=== PATIENT | female | born 1940 | race Caucasian/White ===

== ENCOUNTER 2020-07-15 13:50 | Emergency (ER) | payer OTHER ==
--- NOTE | 2020-07-15 15:36 | RAD REPORT ---
EXAM DESCRIPTION: CT - Head Brain Wo Cont - 07/15/2020 3:17 pm CLINICAL HISTORY: fall COMPARISON: <Comparisons> TECHNIQUE: Axial 5 mm thick images of the head were obtained without IV contrast. All CT scans are performed using dose optimization technique as appropriate and may include automated exposure control or mA/KV adjustment according to patient size. FINDINGS: No intracranial hemorrhage, mass, edema or shift of mid-line structures. No acute infarcti on changes seen. Mild atrophy and chronic ischemic changes are present. Ventricles are in proportion to volume loss. Mastoid air cells and visualized portions of the paranasal sinuses are clear. No acute bony findings. IMPRESSION: No hemorrhage or acute intracranial finding. Mild atrophy and chronic ischemic change. Chronic ischemic changes can mask nonhemorrhagic acute infarction. MR brain followup can be obtained if there is ongoing concern for acute ischemia.
[2020-07-15 17:11] LABS: Absolute Lymphocytes (CBC) 1.8 K/uL (0.7-4.9); Basophils % 0.7 % (0-1.3); Hematocrit 38.2 % (36.0-45.0); Lymphocytes % 13.9 % (15.3-44.8); MPV 8.8 fL (7.6-11.3); RBC Red Blood Cell Count 4.18 M/uL (3.86-4.86)
[2020-07-15] MEDS ORDERED: NA CHLORIDE 0.9% 500 ML ONE ×2 (17:13→18:21)
[2020-07-15 17:26] LABS: Potassium 4.1 mmol/L (3.5-5.1)
--- NOTE | 2020-07-15 18:23 | EDPHYS ---
Physician Documentation [facility] Name: July Godinez Age: 79 yrs Sex: Female : 1940 Arrival Date: 07/15/2020 Time: 13:52 Bed 2 Private MD: ED Physician Edgar Aguilar HPI: 07/15 16:52 This 79 yrs old Female presents to ER via Wheelchair with complaints of Fall rn Injury - repeated. 16:52 Details of fall: The patient fell from an upright position, from seated position. rn Onset: The symptoms/episode began/occurred today, yesterday. Associated injuries: The patient sustained injury to the head, right leg. Severity of symptoms: At their worst the symptoms were mild, in the emergency department the symptoms are unchanged. The patient has experienced similar episodes in the past. Family and patient report multiple falls for months, but 3 falls in last 24 hours, scraped leg yesterday. Reports takes xanax frequently, and recently started taking unknown prescription pain medication for TMJ pain. Reports hit head yesterday but no LOC. Denies pain currently, no vomiting/diarrhea/chest pain/sob/fever. Reports generalized weakness and uses stool/rolling chair to clean the house. Doesn't drink water, only drinks iced tea. . Historical: - Allergies: 14:44 Demerol; ca1 - PMHx: 14:44 Thyroid problem; Hypertension; DVT; ca1 - PSHx: 14:44 shoulder surgery; Hysterectomy; ca1 - Immunization history:: Adult Immunizations up to date, Flu vaccine is up to date. - Social history:: Smoking status: Patient denies any tobacco usage or history of. - Family history:: not pertinent. - Hospitalizations: : No recent hospitalization is reported. ROS: 16:52 Constitutional: Negative for fever, chills, and weight loss, Eyes: Negative for injury, rn pain, redness, and discharge, Neck: Negative for injury, pain, and swelling, Cardiovascular: Negative for chest pain, palpitations, and edema, Respiratory: Negative for shortness of breath, cough, wheezing, and pleuritic chest pain, Abdomen/GI: Negative for abdominal pain, nausea, vomiting, diarrhea, and constipation, Back: Negative for injury and pain, MS/Extremity: Negative for injury and deformity, Skin: + abrasion/skin tear RLE Neuro: Negative for headache, numbness, tingling, and seizure. Exam: 16:52 Constitutional: This is a well developed, well nourished patient who is awake, alert, rn and in no acute distress. Head/Face: Normocephalic, atraumatic. Eyes: Pupils equal round and reactive to light, extra-ocular motions intact. Periorbital areas with no swelling, redness, or edema. ENT: dry MM Neck: Trachea midline, no masses palpated, and no cervical lymphadenopathy. Supple, full range of motion without nuchal rigidity, or vertebral point tenderness. No Meningismus. Chest/axilla: Normal chest wall appearance and motion. Non-tender Cardiovascular: Regular rate and rhythm. No pulse deficits. Respiratory: No increased work of breathing, no retractions or nasal flaring. Abdomen/GI: Soft, non-tender Back: No spinal tenderness. No costovertebral tenderness. Full range of motion. MS/ Extremity: Pulses equal, no cyanosis. Neurovascular intact. Full, normal range of motion. Equal circumference. + long linear abrasion/skin tear RLE, no laceration Neuro: Awake and alert, GCS 15, oriented to person, place, time, and situation. Cranial nerves II-XII grossly intact. Motor strength 5/5 in all extremities. Sensory grossly intact. Cerebellar exam normal. Vital Signs: 14:35 BP 120 / 61; Pulse 57; Resp 18 S; Temp 98.3(TE); Pulse Ox 93% on R/A; Weight 86.18 kg ca1 (R); Height 5 ft. 4 in. (162.56 cm) (R); Pain 0/10; 16:56 Temp 97.9(O); ae4 17:20 BP 136 / 56; Pulse 60; Resp 21; Pulse Ox 95% on R/A; ae4 17:51 BP 112 / 56; Pulse 60; Resp 16; Pulse Ox 96% on R/A; ae4 18:49 BP 125 / 61; Pulse 60; Resp 24; Pulse Ox 93% on R/A; ae4 14:35 Body Mass Index 32.61 (86.18 kg, 162.56 cm) ca1 MDM: 16:38 Patient medically screened. rn 18:07 ED course: Family showed me picture of medication, includes hydrocodone, tylenol #3, rn quetiapine, xanax. Most likely etiology of multiple falls is over medication with sedative/pain meds, and dehydration contributing as superimposed problem. Cath did not have any urine in bladder, will give more fluids. . 18:20 Differential diagnosis: closed head injury, dehydration, over medication. Data rn reviewed: vital signs, nurses notes, lab test result(s), EKG, radiologic studies, and as a result, I will discharge patient. Counseling: I had a detailed discussion with the patient and/or guardian regarding: the historical points, exam findings, and any diagnostic results supporting the discharge/admit diagnosis, lab results, radiology results, the need for outpatient follow up, to return to the emergency department if symptoms worsen or persist or if there are any questions or concerns that arise at home. Response to treatment: the patient's symptoms have markedly improved after treatment, and as a result, I will discharge patient. Special discussion: I discussed with the patient/guardian in detail that at this point there is no indication for admission to the hospital. It is understood, however, that if the symptoms persist or worsen the patient needs to return immediately for re-evaluation. 07/15 16:52 Order name: CBC with Diff; Complete Time: 17:23 rn 07/15 16:52 Order name: Basic Metabolic Panel; Complete Time: 17:36 rn 07/15 14:45 Order name: CT Head Brain wo Cont; Complete Time: 16:38 ca1 07/15 16:52 Order name: Urine Microscopic Only 07/15 18:23 Order name: Urine Dipstick--Ancillary (enter results) em1 07/15 18:49 Order name: Urine Culture EDDE 07/15 14:45 Order name: EKG; Complete Time: 14:46 ca1 07/15 14:45 Order name: EKG - Nurse/Tech; Complete Time: 14:45 ca1 07/15 16:52 Order name: IV Start; Complete Time: 16:55 rn 07/15 16:52 Order name: Urine Dipstick-Ancillary (obtain specimen); Complete Time: 18:21 rn 07/15 17:24 Order name: XRAY Chest (1 view) rn Administered Medications: 17:01 Drug: NS 0.9% 500 ml Route: IV; Rate: bolus; Site: right antecubital; ae4 17:30 Follow up: IV Status: Completed infusion; IV Intake: 500ml ae4 18:15 Drug: NS 0.9% 500 ml Route: IV; Rate: bolus; Site: right antecubital; ae4 19:11 Follow up: IV Status: Completed infusion; IV Intake: 500ml ae4 Disposition: 07/15/20 18:23 Discharged to Home. Impression: Weakness, Dehydration. - Condition is Stable. - Discharge Instructions: Dehydration, Adult, Weakness. - Medication Reconciliation Form, Thank You Letter, Antibiotic Education, Prescription Opioid Use form. - Follow up: Private Physician; When: As needed; Reason: Recheck today's complaints, Re-evaluation by your physician. - Problem is an ongoing problem. - Symptoms have improved. Signatures: Dispatcher [employer] EDMS Edgar Aguilar MD MD rn Acob, BELEN Medina RN Ranulfo Rose RN RN ae4 Corrections: (The following items were deleted from the chart) 19:12 18:23 07/15/2020 18:23 Discharged to Home. Impression: Weakness; Dehydration. Condition ae4 is Stable. Discharge Instructions: Dehydration, Adult, Weakness. Forms are Medication Reconciliation Form, Thank You Letter, Antibiotic Education, Prescription Opioid Use. Follow up: Private Physician; When: As needed; Reason: Recheck today's complaints, Re-evaluation by your physician. Problem is an ongoing problem. Symptoms have improved. rn
--- NOTE | 2020-07-15 18:23 | ER ---
Nurse's Notes [facility] Name: July Godienz Age: 79 yrs Sex: Female : 1940 Arrival Date: 07/15/2020 Time: 13:52 Bed 2 Private MD: Diagnosis: Weakness;Dehydration Presentation: 07/15 14:35 Chief complaint: Patient's son or daughter states: daughter: yesterday she had fallen ca1 from loss of balance, she hit her head on the dresser and tore her leg on the R. Unknown if there was LOC, Not on blood thinners for 6-7 years. This morning, we showed up at noon and she said she fell again, twice today, and said she spent couple hours on the floor. 1st fall today, she off the toilet, then 2nd floor, slid off the bed. Pt A\T\Ox4. VAN negative. Slurring negative. Coronavirus screen: Client denies travel out of the [place] in the last 14 days. At this time, the client does not indicate any symptoms associated with coronavirus-19. Ebola Screen: Patient negative for fever greater than or equal to 101.5 degrees Fahrenheit, and additional compatible Ebola Virus Disease symptoms Patient denies exposure to infectious person. Patient denies travel to an Ebola-affected area in the 21 days before illness onset. No symptoms or risks identified at this time. Initial Sepsis Screen: Does the patient meet any 2 criteria? No. Patient's initial sepsis screen is negative. Does the patient have a suspected source of infection? No. Patient's initial sepsis screen is negative. Risk Assessment: Do you want to hurt yourself or someone else? Patient reports no desire to harm self or others. Onset of symptoms was July 15, 2020. 14:35 Method Of Arrival: Wheelchair ca1 14:35 Acuity: ALDO 2 ca1 Historical: - Allergies: 14:44 Demerol; ca1 - PMHx: 14:44 Thyroid problem; Hypertension; DVT; ca1 - PSHx: 14:44 shoulder surgery; Hysterectomy; ca1 - Immunization history:: Adult Immunizations up to date, Flu vaccine is up to date. - Social history:: Smoking status: Patient denies any tobacco usage or history of. - Family history:: not pertinent. - Hospitalizations: : No recent hospitalization is reported. Screenin:21 Abuse screen: Denies threats or abuse. Nutritional screening: No deficits noted. ae4 Tuberculosis screening: No symptoms or risk factors identified. Fall Risk Fall in past 12 months (25 points). Secondary diagnosis (15 points) impaired mobility, IV access (20 points). Ambulatory Aid- None/Bed Rest/Nurse Assist (0 pts). Gait- Normal/Bed Rest/Wheelchair (0 pts) Mental Status- Overestimates/Forgets Limitations (15 pts.). Primary Survey: 17:20 NO uncontrolled hemorrhage observed. Breathing/Chest: Respiratory pattern: regular. ae4 Assessment: 17:16 General: Appears in no apparent distress. comfortable, obese, unkempt, Behavior is ae4 calm, cooperative. Pain: Denies pain. Neuro: Level of Consciousness is awake, alert, obeys commands, Oriented to person, place, time, situation. Cardiovascular: Patient's skin is warm and dry. Rhythm is regular. Respiratory: Airway is patent Respiratory effort is even, unlabored, Respiratory pattern is regular, symmetrical. GI: No signs and/or symptoms were reported involving the gastrointestinal system. Abdomen is round obese, Bowel sounds present X 4 quads. GI:. : Reports Not able to urinate, as she does not typically drink water . EENT: Oral mucosa is dry. Poor dentition noted. Derm: Wound noted right arauoj Other: Skin tear, dried blood noted. Similar healed skin tear to left anterior lower extremity. Derm: Skin is dry, Skin temperature is warm. Musculoskeletal: No signs and/or symptoms reported regarding the musculoskeletal system. Swelling present in right araujo. Injury Description: Fall. 17:22 Reassessment: Patient appears in no apparent distress at this time. Patient and/or ae4 family updated on plan of care and expected duration. Pain level reassessed. 18:09 Reassessment: Patient appears in no apparent distress at this time. Patient and/or ae4 family updated on plan of care and expected duration. Pain level reassessed. Patient denies pain at this time. Attempted to straight-cath to obtain a urine sample, to no avail. notified provider.. 18:50 Reassessment: Patient appears in no apparent distress at this time. Patient and/or ae4 family updated on plan of care and expected duration. Pain level reassessed. Patient is alert, oriented x 3, equal unlabored respirations, skin warm/dry/pink. Patient denies pain at this time. Patient states feeling better. Vital Signs: 14:35 BP 120 / 61; Pulse 57; Resp 18 S; Temp 98.3(TE); Pulse Ox 93% on R/A; Weight 86.18 kg ca1 (R); Height 5 ft. 4 in. (162.56 cm) (R); Pain 0/10; 16:56 Temp 97.9(O); ae4 17:20 BP 136 / 56; Pulse 60; Resp 21; Pulse Ox 95% on R/A; ae4 17:51 BP 112 / 56; Pulse 60; Resp 16; Pulse Ox 96% on R/A; ae4 18:49 BP 125 / 61; Pulse 60; Resp 24; Pulse Ox 93% on R/A; ae4 14:35 Body Mass Index 32.61 (86.18 kg, 162.56 cm) ca1 ED Course: 13:52 Patient arrived in ED. as 14:43 Triage completed. ca1 14:44 Arm band placed on right wrist. ca1 14:45 Bed in low position. Call light in reach. Side rails up X2. Adult w/ patient. Cardiac ae4 monitor on. Pulse ox on. NIBP on. Warm blanket given. 15:17 CT Head Brain wo Cont In Process Unspecified. EDMS 16:38 Edgar Aguilar MD is Attending Physician. rn 16:55 Ranulfo Ramirez, BELEN is Primary Nurse. ae4 16:56 Inserted saline lock: 22 gauge in right antecubital area, using aseptic technique. ae4 Blood collected. 17:43 XRAY Chest (1 view) In Process Unspecified. EDMS 18:09 Straight cath inserted, using sterile technique, 15 FR, no urine return. ae4 19:10 No provider procedures requiring assistance completed. IV discontinued, intact, ae4 bleeding controlled, No redness/swelling at site. Pressure dressing applied. Administered Medications: 17:01 Drug: NS 0.9% 500 ml Route: IV; Rate: bolus; Site: right antecubital; ae4 17:30 Follow up: IV Status: Completed infusion; IV Intake: 500ml ae4 18:15 Drug: NS 0.9% 500 ml Route: IV; Rate: bolus; Site: right antecubital; ae4 19:11 Follow up: IV Status: Completed infusion; IV Intake: 500ml ae4 Intake: 17:30 IV: 500ml; Total: 500ml. ae4 19:11 IV: 500ml; Total: 1000ml. ae4 Outcome: 18:23 Discharge ordered by . rn 19:10 Discharged to home via wheelchair, with family. ae4 19:10 Condition: stable 19:10 Discharge instructions given to patient, Instructed on discharge instructions, follow up and referral plans. Demonstrated understanding of instructions, Patient teaching on adequate water intake. 19:12 Patient left the ED. ae4 Signatures: Dispatcher [employer] Leola Oneal Roman, MD MD rn Aceden, Carol, RN RN ca1 Ranulfo Ramirez RN RN ae4 Corrections: (The following items were deleted from the chart) 14:46 14:35 Chief complaint: Patient's son or daughter states: daughter: yesterday she had ca1 fallen from loss of balance, she hit her head on the dresser and tore her leg on the R. Unknown if there was LOC. This morning, we showed up at noon and she said she fell again, twice today, and said she spent couple hours on the floor. 1st fall today, she off the toilet, then 2nd floor, slid off the bed. Pt A\T\Ox4. VAN negative. Slurring negative. ca1
[2020-07-15 18:31] LABS: Urine Glucose NEGATIVE (NEG); Urine Specific Gravity >1.030 (1.005-1.030)
[2020-07-15 18:32] LABS: Urine Blood NEGATIVE (NEG); Urine Protein NEGATIVE (NEG)
[2020-07-15 18:47] LABS: Urine Bacteria <20 /HPF (<20); Urine RBC NONE SEEN /HPF (NONE SEEN)
[2020-07-15 19:17] VITALS: TEMP 97.9
[2020-07-15 19:20] VITALS: BP 125/61; O2SAT 93
--- NOTE | 2020-07-15 19:48 | RAD REPORT ---
EXAM DESCRIPTION: RAD - Chest Single View - 07/15/2020 5:42 pm CLINICAL HISTORY: weakness, elevated WBC COMPARISON: Two view chest December 2014 TECHNIQUE: AP portable chest image was obtained 07/15/2020 5:42 pm . FINDINGS: Lung volumes are low compared to prior study. Patient is rotated slightly. No peripheral m ass or consolidation. Heart size and vasculature are fractionally increased from comparison. No measu rable pleural effusion and no pneumothorax. No acute bony abnormality seen. No acute aortic findings suspected. IMPRESSION: No focal mass or consolidation. Heart, vasculature and lung markings are mildly prominent. This is mostly the affects of portable martinez hnique and shallow inspiration. A minimal failure or volume overload are not excluded.
== END 2020-07-15 19:12 | disposition home or self-care (01) ==
LOC: ER 13:50
DX: E86.0 Dehydration (principal); R29.6 Repeated falls; I10 Essential (primary) hypertension; Z86.718 Personal history of other venous thrombosis and embolism; Z88.5 Allergy status to narcotic agent
CPT/HCPCS: 93005; 87088; 85025; 87086; 80048; 36415; 70450; 71045; 51702; 96360; 99284; J7040 ×2; 81003; 81015

== ENCOUNTER 2020-07-16 16:44 | Observation (INO) | payer OTHER ==
--- OUTSIDE RECORDS SUMMARY | 2020-07-16 16:46 | XMS REPORT | Continuity of Care Document ---
:[address] [facility] t Address [address] [place] [address] Care Team Providers Name Role Phone Georges MACEDO Attending Clinician Problems This patient has no known problems. Allergies, Adverse Reactions, Alerts This patient has no known allergies or adverse reactions. Medications This patient has no known medications. Procedures This patient has no known procedures. Encounters Start End Encounter Admission Attending Care Care Encounter Source Date/Time Date/Time Type Type Clinicians Facility Department ID 2019-11-15 2019-11-15 Natalee Su MOELZA [id number] 00:00:00 00:00:00 [facility] [id number] [place] [id number] Erik [id number] [address] [address] Results This patient has no known results.
--- NOTE | 2020-07-16 20:26 | EDPHYS ---
Physician Documentation [facility] Name: July Godinez Age: 79 yrs Sex: Female : 1940 Arrival Date: 07/16/2020 Time: 16:46 Bed 3 Private MD: ED Physician Guido Linn HPI: 07/16 20:21 This 79 yrs old Female presents to ER via Wheelchair with complaints of Fall karen Injury. 20:21 Details of fall: The patient fell from an upright position, while standing, while karen walking. Onset: The symptoms/episode began/occurred just prior to arrival. Associated injuries: The patient sustained injury to the head. Severity of symptoms: At their worst the symptoms were mild, in the emergency department the symptoms are unchanged. The patient has not experienced similar symptoms in the past. Historical: - Allergies: 17:10 Demerol; ll1 - PMHx: 17:10 Hypertension; DVT; Thyroid problem; ll1 - PSHx: 17:10 shoulder surgery; Hysterectomy; ll1 - Immunization history:: Flu vaccine is up to date. - Social history:: Smoking status: Patient denies any tobacco usage or history of. - Immunization history: Last tetanus immunization: - up to date. - Family history:: not pertinent. ROS: 20:21 Constitutional: Negative for fever, chills, and weight loss, Eyes: Negative for injury, karen pain, redness, and discharge, ENT: Negative for injury, pain, and discharge, Neck: Negative for injury, pain, and swelling, Cardiovascular: Negative for chest pain, palpitations, and edema, Respiratory: Negative for shortness of breath, cough, wheezing, and pleuritic chest pain, Abdomen/GI: Negative for abdominal pain, nausea, vomiting, diarrhea, and constipation, Back: Negative for injury and pain, : Negative for injury, bleeding, discharge, and swelling, MS/Extremity: Negative for injury and deformity, Skin: Negative for injury, rash, and discoloration, Neuro: Negative for headache, weakness, numbness, tingling, and seizure, Psych: Negative for depression, anxiety, suicide ideation, homicidal ideation, and hallucinations, Allergy/Immunology: Negative for hives, rash, and allergies, Endocrine: Negative for neck swelling, polydipsia, polyuria, polyphagia, and marked weight changes, Hematologic/Lymphatic: Negative for swollen nodes, abnormal bleeding, and unusual bruising. Exam: 20:21 Constitutional: This is a well developed, well nourished patient who is awake, alert, karen and in no acute distress. Eyes: Pupils equal round and reactive to light, extra-ocular motions intact. Lids and lashes normal. Conjunctiva and sclera are non-icteric and not injected. Cornea within normal limits. Periorbital areas with no swelling, redness, or edema. ENT: Nares patent. No nasal discharge, no septal abnormalities noted. Tympanic membranes are normal and external auditory canals are clear. Oropharynx with no redness, swelling, or masses, exudates, or evidence of obstruction, uvula midline. Mucous membranes moist. Neck: Trachea midline, no thyromegaly or masses palpated, and no cervical lymphadenopathy. Supple, full range of motion without nuchal rigidity, or vertebral point tenderness. No Meningismus. Chest/axilla: Normal chest wall appearance and motion. Nontender with no deformity. No lesions are appreciated. Cardiovascular: Regular rate and rhythm with a normal S1 and S2. No gallops, murmurs, or rubs. Normal PMI, no JVD. No pulse deficits. Respiratory: Lungs have equal breath sounds bilaterally, clear to auscultation and percussion. No rales, rhonchi or wheezes noted. No increased work of breathing, no retractions or nasal flaring. Abdomen/GI: Soft, non-tender, with normal bowel sounds. No distension or tympany. No guarding or rebound. No evidence of tenderness throughout. Back: No spinal tenderness. No costovertebral tenderness. Full range of motion. Female : Normal external genitalia. Skin: Warm, dry with normal turgor. Normal color with no rashes, no lesions, and no evidence of cellulitis. MS/ Extremity: Pulses equal, no cyanosis. Neurovascular intact. Full, normal range of motion. Neuro: Awake and alert, GCS 15, oriented to person, place, time, and situation. Cranial nerves II-XII grossly intact. Motor strength 5/5 in all extremities. Sensory grossly intact. Cerebellar exam normal. Normal gait. Psych: Awake, alert, with orientation to person, place and time. Behavior, mood, and affect are within normal limits. 21:01 ECG was reviewed by the Attending Physician. [facility] Vital Signs: 17:06 BP 129 / 52; Pulse 62; Resp 18; Temp 98.2; Pulse Ox 95% ; Weight 86.18 kg; Height 5 ft. ll1 4 in. (162.56 cm); Pain 0/10; 22:45 BP 137 / 64 Supine; Pulse 64; Resp 16; Pulse Ox 91% ; rr5 22:47 BP 131 / 64 Sitting; Pulse 61; Resp 17; Pulse Ox 92% ; rr5 22:49 BP 134 / 56 Standing; Pulse 69; Resp 20; Pulse Ox 90% ; rr5 23:13 BP 151 / 62; Pulse 61; Resp 20; Temp 98; Pulse Ox 96% on R/A; rv 17:06 Body Mass Index 32.61 (86.18 kg, 162.56 cm) ll1 [place] Coma Score: 19:43 Eye Response: spontaneous(4). Verbal Response: oriented(5). Motor Response: obeys rv commands(6). Total: 15. Trauma Score (Adult): 19:43 Eye Response: spontaneous(1); Verbal Response: oriented(1); Motor Response: obeys rv commands(2); Systolic BP: > 89 mm Hg(4); Respiratory Rate: 10 to 29 per min(4); [place] Score: 15; Trauma Score: 12 MDM: 19:24 Patient medically screened. [facility] 20:23 Differential diagnosis: closed head injury. Data reviewed: vital signs, nurses notes, [facility] lab test result(s), EKG, radiologic studies, CT scan, plain films. Data interpreted: school bus monitor: rate is 62 beats/min, Pulse oximetry: on room air is 95 %. Test interpretation: by ED physician or midlevel provider: ECG, plain radiologic studies. Counseling: I had a detailed discussion with the patient and/or guardian regarding: the historical points, exam findings, and any diagnostic results supporting the discharge/admit diagnosis, lab results, radiology results, the need for further work-up and treatment in the hospital. 07/16 20:20 Order name: Basic Metabolic Panel; Complete Time: 21:16 [facility] 07/16 20:20 Order name: CBC with Diff; Complete Time: 21:02 [facility] 07/16 20:20 Order name: LFT's; Complete Time: 21:16 [facility] 07/16 20:20 Order name: Magnesium; Complete Time: 21:16 [facility] 07/16 20:20 Order name: NT PRO-BNP; Complete Time: 21:16 [facility] 07/16 20:20 Order name: PT-INR; Complete Time: 21:16 [facility] 07/16 20:20 Order name: Troponin (emerg Dept Use Only); Complete Time: 21:16 [facility] 07/16 23:03 Order name: Urine Microscopic Only 5 07/16 23:18 Order name: Urine Dipstick--Ancillary (enter results) 07/16 23:38 Order name: Urine Dipstick-Ancillary; Complete Time: 07:19 [facility] 07/17 04:27 Order name: COVID-19 [facility] 07/17 04:40 Order name: CORONAVIRUS [facility] 07/17 05:26 Order name: SARS-COV-2 RT PCR; Complete Time: 07:19 [facility] 07/17 05:31 Order name: CBC with Automated Diff; Complete Time: 07:19 [facility] 07/16 18:58 Order name: CT Head Brain wo Cont; Complete Time: 20:57 07/16 20:20 Order name: XRAY Chest (1 view) [facility] 07/16 20:20 Order name: EKG; Complete Time: 20:22 [facility] 07/16 20:20 Order name: Cardiac monitoring; Complete Time: 20:34 [facility] 07/16 20:20 Order name: EKG - Nurse/Tech; Complete Time: 21:50 [facility] 07/16 20:20 Order name: IV Saline Lock; Complete Time: 20:34 [facility] 07/16 20:20 Order name: Labs collected and sent; Complete Time: 20:34 [facility] 07/16 20:20 Order name: CT C Spine; Complete Time: 22:37 [facility] 07/17 05:46 Order name: Basic Metabolic Panel; Complete Time: 07:19 [facility] 07/17 05:47 Order name: T4 Free; Complete Time: 07:19 [facility] 07/17 05:47 Order name: Magnesium; Complete Time: 07:19 [facility] 07/17 05:47 Order name: Thyroid Stimulating Hormone; Complete Time: 07:19 [facility] 07/16 20:20 Order name: O2 Per Protocol; Complete Time: 20:34 [facility] 07/16 20:20 Order name: O2 Sat Monitoring; Complete Time: 20:34 [facility] 07/16 20:20 Order name: Urine Dipstick-Ancillary (obtain specimen); Complete Time: 20:34 karen 07/16 20:20 Order name: Wound Care; Complete Time: 21:29 karen 07/16 20:35 Order name: Urine Dipstick-Ancillary (obtain specimen); Complete Time: 23:02 rv 07/16 21:45 Order name: Orthostatic Blood Pressure; Complete Time: 23:02 la1 EC:01 Rate is 60 beats/min. Rhythm is regular. QRS [place] is Normal. [place] interval is normal. QRS karen interval is normal. QT interval is normal. No Q waves. T waves are Normal. No ST changes noted. Clinical impression: NSR w/ Non-specific ST/T Changes, 1st degree heart block, and No evidence of ischemia. Interpreted by me. Reviewed by me. Administered Medications: 20:45 Drug: NS 0.9% 500 ml Route: IV; Rate: bolus; Site: left antecubital; rv 21:50 Follow up: IV Status: Completed infusion; IV Intake: 500ml rv 21:50 Drug: NS 0.9% 1000 ml Route: IV; Rate: 125 ml/hr; Site: left antecubital; rv 23:15 Follow up: IV Status: Completed infusion rv 07/17 00:30 Drug: SEROquel 200 mg Route: PO; rv 00:30 Drug: Benadryl 50 mg Route: PO; rv Disposition: 07/16/20 20:26 Hospitalization ordered by Sim Pritchard for Observation. Preliminary diagnosis are Syncope and collapse - near, Weakness, Superficial injury of head, Repeated falls. - Bed requested for Telemetry/MedSurg (observation). - Status is Observation. sv - Condition is Fair. - Problem is new. - Symptoms have improved. Signatures: Dispatcher [employer] EDMN Amanda Lacey RN RN sv Gay, Steven RN Guido Mena MD MD cha Nieto, Roman, MD MD rn Attema, Lee, SALT LIFTER-C SALT LIFTER-Cla1 Samantha Silva RN RN cg Vicente, Ronaldo, RN RN rv Lewis, Lynsay, RN RN ll1 Corrections: (The following items were deleted from the chart) 07/16 21:47 20:26 Hospitalization Ordered by Hemant Mullins MD for Observation. Preliminary la1 diagnosis is Syncope and collapse - near; Weakness; Superficial injury of head; Repeated falls. Bed requested for Telemetry/MedSurg (observation). Status is Observation. Condition is Fair. Problem is new. Symptoms have improved. karen 22:56 21:47 07/16/2020 20:26 Hospitalization Ordered by Sim Pritchard for Observation. cg Preliminary diagnosis is Syncope and collapse - near; Weakness; Superficial injury of head; Repeated falls. Bed requested for Telemetry/MedSurg (observation). Status is Observation. Condition is Fair. Problem is new. Symptoms have improved. la1 07/17 06:29 07/16 22:56 07/16/2020 20:26 Hospitalization Ordered by Sim Pritchard for Observation. cg Preliminary diagnosis is Syncope and collapse - near; Weakness; Superficial injury of head; Repeated falls. Bed requested for [facility] ER HOLD. Status is Observation. Condition is Fair. Problem is new. Symptoms have improved. cg 07/17 07:58 06:29 07/16/2020 20:26 Hospitalization Ordered by Sim Pritchard for Observation. sv Preliminary diagnosis is Syncope and collapse - near; Weakness; Superficial injury of head; Repeated falls. Bed requested for Telemetry/MedSurg (observation). Status is Observation. Condition is Fair. Problem is new. Symptoms have improved.
--- NOTE | 2020-07-16 20:26 | ER ---
Nurse's Notes [facility] Name: July Godinez Age: 79 yrs Sex: Female : 1940 Arrival Date: 07/16/2020 Time: 16:46 Bed 3 Private MD: Diagnosis: Syncope and collapse-near;Weakness;Superficial injury of head;Repeated falls Presentation: 07/16 17:06 Chief complaint: Patient states: Leaned over to grab a bag 1.5 hours ago today. [place] ll1 dizzy, fell onto tile and hit head on table. No LOC, no blood thinners, baby aspirin only. No N/V. Laceration to back of head, bleeding controlled. Coronavirus screen: Client denies travel out of the [place] in the last 14 days. At this time, the client does not indicate any symptoms associated with coronavirus-19. Ebola Screen: Patient denies travel to an Ebola-affected area in the 21 days before illness onset. Initial Sepsis Screen: Does the patient meet any 2 criteria? No. Patient's initial sepsis screen is negative. Does the patient have a suspected source of infection? Yes: Skin breakdown/wound. Risk Assessment: Do you want to hurt yourself or someone else? Patient reports no desire to harm self or others. Onset of symptoms was July 16, 2020. 17:06 Method Of Arrival: Wheelchair ll1 17:06 Acuity: ALDO 3 ll1 19:42 Care prior to arrival: None. Mechanism of Injury: Fall from standing position. Trauma rv event details: Injury occurred in the [facility], Injury occurred: at home. Injury occurred: July 16, 2020 Injury occurred at: 17:30. Trauma Activation: Not Applicable Physician: ED Physician; Name: ; Notified At: ; Arrived At: Physician: General Surgeon; Name: ; Notified At: ; Arrived At: Physician: Radiology; Name: ; Notified At: ; Arrived At: Physician: Respiratory; Name: ; Notified At: ; Arrived At: Physician: Lab; Name: ; Notified At: ; Arrived At: Historical: - Allergies: 17:10 Demerol; ll1 - PMHx: 17:10 Hypertension; DVT; Thyroid problem; ll1 - PSHx: 17:10 shoulder surgery; Hysterectomy; ll1 - Immunization history:: Flu vaccine is up to date. - Social history:: Smoking status: Patient denies any tobacco usage or history of. - Immunization history: Last tetanus immunization: - up to date. - Family history:: not pertinent. Screenin:40 Abuse screen: Denies threats or abuse. Denies injuries from another. Nutritional rv screening: No deficits noted. Tuberculosis screening: No symptoms or risk factors identified. Fall Risk Fall in past 12 months (25 points). Secondary diagnosis (15 points) impaired mobility, No IV (0 pts). Ambulatory Aid- Crutches/Cane/Walker (15 pts). Gait- Weak (10 pts.). Mental Status- Overestimates/Forgets Limitations (15 pts.). Total Bolanos Fall Scale indicates High Risk Score (45 or more points). Fall prevention measures have been instituted. Side Rails Up X 2 Placed Close to Nursing Station Frequent Obs/Assessments Occuring Family Present and informed to notify staff if the need to leave the bedside As available patient and family educated on Fall Prevention Program and Strategies. Primary Survey: 19:41 NO uncontrolled hemorrhage observed. Breathing/Chest: Respiratory pattern: regular. rv Circulation: Cardiac rhythm: sinus rhythm. Disability Alert. Exposure/Environment: All clothing and personal items were removed. Forensic evidence collection is not deemed to be indicated at this time. Items placed in patient belonging bag. There is no evidence of uncontrolled external bleeding. No obvious injuries are noted at this time. A warming method has been applied: A warm blanket has been provided to the patient. 23:14 A: The patient is alert. Reassessment Breathing/Chest Respiratory pattern Regular. rv Secondary Survey: 19:42 HEENT: No deficits noted. Head No injury/deformity Face No injury/deformity Eyes: No rv injury or deformity noted. Ears: clear Nose: clear. Gastrointestinal: No deficits noted. : No signs and/or symptoms were reported regarding the genitourinary system. Musculoskeletal: No signs and/or symptoms reported regarding the musculoskeletal system. Assessment: 19:40 General: Appears comfortable, Behavior is calm, cooperative. Pain: Denies pain. Neuro: rv No deficits noted. Neuro: Level of Consciousness is awake, alert, obeys commands, Oriented to person, place, time, situation. Cardiovascular: Patient's skin is warm and dry. Respiratory: Airway is patent Respiratory effort is even, unlabored. Derm: Skin is intact. Vital Signs: 17:06 BP 129 / 52; Pulse 62; Resp 18; Temp 98.2; Pulse Ox 95% ; Weight 86.18 kg; Height 5 ft. ll1 4 in. (162.56 cm); Pain 0/10; 22:45 BP 137 / 64 Supine; Pulse 64; Resp 16; Pulse Ox 91% ; rr5 22:47 BP 131 / 64 Sitting; Pulse 61; Resp 17; Pulse Ox 92% ; rr5 22:49 BP 134 / 56 Standing; Pulse 69; Resp 20; Pulse Ox 90% ; rr5 23:13 BP 151 / 62; Pulse 61; Resp 20; Temp 98; Pulse Ox 96% on R/A; rv 17:06 Body Mass Index 32.61 (86.18 kg, 162.56 cm) ll1 [place] Coma Score: 19:43 Eye Response: spontaneous(4). Verbal Response: oriented(5). Motor Response: obeys rv commands(6). Total: 15. Trauma Score (Adult): 19:43 Eye Response: spontaneous(1); Verbal Response: oriented(1); Motor Response: obeys rv commands(2); Systolic BP: > 89 mm Hg(4); Respiratory Rate: 10 to 29 per min(4); [place] Score: 15; Trauma Score: 12 ED Course: 16:46 Patient arrived in ED. rg4 17:09 Triage completed. ll1 17:10 Arm band placed on. ll1 19:24 Guido Linn MD is Attending Physician. karen 19:40 Reji Crowley RN is Primary Nurse. rv 19:43 Patient has correct armband on for positive identification. Pulse ox on. NIBP on. rv 19:43 Patient maintains SpO2 saturation greater than 95% on room air. Thermoregulation: warm rv blanket given to patient. 19:58 CT Head Brain wo Cont In Process Unspecified. EDMS 20:24 Hemant Mullins MD is Hospitalizing Provider. karen 20:29 Inserted saline lock: 20 gauge in left antecubital area, using aseptic technique. Blood mw2 collected. 20:40 XRAY Chest (1 view) In Process Unspecified. EDMS 21:02 CT C Spine In Process Unspecified. EDMS 21:47 Sim Pritchard is Hospitalizing Provider. la1 23:14 No provider procedures requiring assistance completed. IV is patent, with fluids rv infusing freely, Patient admitted, IV remains in place. Administered Medications: 20:45 Drug: NS 0.9% 500 ml Route: IV; Rate: bolus; Site: left antecubital; rv 21:50 Follow up: IV Status: Completed infusion; IV Intake: 500ml rv 21:50 Drug: NS 0.9% 1000 ml Route: IV; Rate: 125 ml/hr; Site: left antecubital; rv 23:15 Follow up: IV Status: Completed infusion rv 07/17 00:30 Drug: SEROquel 200 mg Route: PO; rv 00:30 Drug: Benadryl 50 mg Route: PO; rv Intake: 07/16 21:50 IV: 500ml; Total: 500ml. rv Output: 23:13 Urine: 400ml (Voided); Total: 400ml. rv Outcome: 20:26 Decision to Hospitalize by Provider. karen 23:14 Admitted to ER Hold. Please see [facility] for further documentation. rv 23:14 Condition: good 23:14 Patient's length of stay was not longer than 2 hours. 07/17 07:58 Patient left the ED. sv Signatures: Dispatcher [employer] EDMS Amanda Lacey RN RN sv Anderson, Corey, MD MD cha Attema, Lee, FROZEN FOODS MANAGER-C FROZEN FOODS MANAGER-Allison Becker MyKena mw2 Reji Crowley RN RN rv Patricio Rollins RN RN rr5 Marti Barraza RN RN ll1
--- NOTE | 2020-07-16 20:38 | RAD REPORT ---
EXAM DESCRIPTION: CT - Head Brain Wo Cont - 07/16/2020 7:57 pm CLINICAL HISTORY: fall COMPARISON: Head Brain Wo Cont dated 07/15/2020 TECHNIQUE: Axial 5 mm thick images of the head were obtained without IV contrast. All CT scans are performed using dose optimization technique as appropriate and may include automated exposure control or mA/KV adjustment according to patient size. FINDINGS: No intracranial hemorrhage, mass, edema or shift of mid-line structures. No acute infarcti on changes seen. No cortical edema or sulcal effacement. Atrophy changes are present. Ventricles are prominent but similar to comparison. Arterial and physiologic calcifications are present. Mastoid air cells and visualized portions of the paranasal sinuses are clear. No acute bony findings. IMPRESSION: Negative non-contrast CT head examination for acute finding. Above detailed findings are similar to comparison.
[2020-07-16] MEDS ORDERED: NA CHLORIDE 0.9% 1,000 ML ONE (20:51)
[2020-07-16 20:52] LABS: Absolute Lymphocytes (CBC) 2.3 K/uL (0.7-4.9); Basophils % 0.6 % (0-1.3); Hematocrit 35.6 % (36.0-45.0); Lymphocytes % 24.7 % (15.3-44.8); MPV 8.6 fL (7.6-11.3); RBC Red Blood Cell Count 3.94 M/uL (3.86-4.86)
[2020-07-16 21:07] LABS: ALT/SGPT 25 U/L (12-78); AST/SGOT 22 U/L (15-37); Albumin 3.6 g/dL (3.4-5.0); Alkaline Phosphatase 85 U/L (45-117); BUN Blood Urea Nitrogen 9 mg/dL (7-18); Bicarbonate 33 mmol/L (21-32); Bilirubin Direct 0.1 mg/dL (0-0.2); Bilirubin Total 0.4 mg/dL (0.2-1.0); Glucose Level 98 mg/dL (74-106); Magnesium 2.2 mg/dL (1.8-2.4); NT PRO-BNP 253 pg/mL (<450); Protein, Total 7.1 g/dL (6.4-8.2); Sodium Level 142 mmol/L (136-145); Troponin (Emerg Dept Use Only) < 0.02 ng/mL (0.0-0.045)
[2020-07-16 21:08] LABS: Protime INR 0.96
--- NOTE | 2020-07-16 21:23 | RAD REPORT ---
EXAM DESCRIPTION: CT - C Spine Wo Con - 07/16/2020 9:02 pm CLINICAL HISTORY: Fall, neck pain, cervical injury COMPARISON: None. TECHNIQUE: Axial 2 mm thick images of the cervical spine were obtained with sagittal and coronal rec onstruction images generated and reviewed. All CT scans are performed using dose optimization technique as appropriate and may include automated exposure control or mA/KV adjustment according to patient size. FINDINGS: Cervical body height and alignment are normal. Calcifications are present within the disc spaces at C3-4 and C4-5. C6-7 fusion is present. No fracture or acute bony abnormality. Facet joint d egenerative changes are present. Significant bony foraminal stenosis on the left at C5-6 and on the r ight at C4-5. Moderate bilateral foraminal stenosis at C3-4. No paraspinal mass or hematoma. Central canal detail is inherently limited on CT imaging. IMPRESSION: Prominent cervical spine degenerative change as detailed. No fracture or acute finding s een.
--- NOTE | 2020-07-16 22:30 | P.HP ---
Certification for Inpatient Patient admitted to: Observation With expected LOS: <2 Midnights Patient will require the following post-hospital care: None Practitioner: I am a practitioner with admitting privileges, knowledge of patient current condition, hospital course, and medical plan of care. Services: Services provided to patient in accordance with Admission requirements found in Title 42 Section 412.3 of the Code of Federal Regulations <Ever Duke - Last Filed: 07/16/20 22:26> Patient History Date of Service: 07/16/20 Primary Care Provider: Dr. Matute Reason for admission: Near syncope, fall History of Present Illness: 79-year-old female with history of hypertension, hypothyroidism p resents to the emergency department for near syncope, fall. Patient had fall approximately 2 days ago under similar circumstances. Patient reports that she was sitting in her recliner, got up to go get something and began to feel lightheaded while she was walking, patient then had fall striking her head on the corner of a table with small laceration noted. Patient lives alone, was worked up in the emergency department, labs unremarkable, imaging unremarkable. Patient reports that she still feels weak. ED provider wishes to admit patient under observation for further evaluation. When I saw the patient in the ER she was awake, alert, oriented x3. Will obtain orthostatics vital signs, provide patient with fluids, eval by physical therapy as she lives alone to make sure she is safe for discharge. - Past Medical/Surgical History -: Hypertension -: Hypothyroidism -: Appendectomy -: Hysterectomy -: Left shoulder surgery -: Cataract surgery Psychosocial/ Personal History: Patient is retired and lives alone - Family History Sister -: Cancer Brother -: Heart disease, Diabetes - Social History Smoking Status: Never smoker Alcohol use: No CD- Drugs: No Caffeine use: Yes Place of Residence: Home <Ever Duke - Last Filed: 07/16/20 22:26> Date of Service: 07/17/20 <ana goncalves - Last Filed: 07/17/20 18:49> Allergies codeine [Codeine] Adverse Reaction (Mild, Verified 06/14/12 06:59) Rash Review of Systems 10-point ROS is otherwise unremarkable General: Weakness Cardiovascular: Light Headedness <Ever Duke - Last Filed: 07/16/20 22:26> Physical Examination - Physical Exam General: Alert, In no apparent distress HEENT: Atraumatic, PERRLA, Other (Mucous membranes dry) Neck: Supple, 2+ carotid pulse no bruit, No LAD Respiratory: Clear to auscultation bilaterally, Normal air movement Cardiovascular: Regular rate/rhythm, Normal S1 S2 Gastrointestinal: Normal bowel sounds, No tenderness Musculoskeletal: No tenderness Integumentary: No rashes Neurological: Normal speech, Normal strength at 5/5 x4 extr, Normal tone, Normal affect Lymphatics: No axilla or inguinal lymphadenopathy - Studies Laboratory Data (last 24 hrs) 07/16/20 20:29: PT 11.3, INR 0.96 07/16/20 20:29: WBC 9.3 D, Hgb 12.0, Hct 35.6 L, Plt Count 330 07/16/20 20:29: Sodium 142, Potassium 4.0, BUN 9, Creatinine 0.83, Glucose 98, Magnesium 2.2, Total Bilirubin 0.4, AST 22, ALT 25, Alkaline Phosphatase 85 <Ever Duke - Last Filed: 07/16/20 22:26> - Studies Laboratory Data (last 24 hrs) 07/16/20 20:29: PT 11.3, INR 0.96 07/16/20 20:29: WBC 9.3 D, Hgb 12.0, Hct 35.6 L, Plt Count 330 07/16/20 20:29: Sodium 142, Potassium 4.0, BUN 9, Creatinine 0.83, Glucose 98, Magnesium 2.2, Total Bilirubin 0.4, AST 22, ALT 25, Alkaline Phosphatase 85 <ana goncalves - Last Filed: 07/17/20 18:49> Assessment and Plan - Plan Assessment Near-syncope with multiple falls Hypertension Hypothyroidism Plan Near-syncope with multiple falls: Check orthostatics vital signs now and in the morning. Continue gentle hydration overnight, patient received bolus in the emergency department. Patient is to be evaluated by physical therapy tomorrow as she lives alone. Likely discharge tomorrow if all is well with physical therapy. Hypertension: Check orthostatics vitals, review medications and continue as appropriate. Hypothyroidism: Thyroid panel with morning labs. Discharge Plan: Home Plan to discharge in: 24 Hours - Advance Directives Does patient have a Living Will: No Does patient have a Durable POA for Healthcare: No - Code Status/Comfort Care Code Status Assessed: Yes (Full code) Critical Care: No Time Spent Managing Pts Care (In Minutes): 55 <Ever Duke - Last Filed: 07/16/20 22:26> - Problems (Diagnosis) (1) Near syncope Current Visit: Yes Status: Acute (2) Fall Current Visit: Yes Status: Acute (3) Hypertension Current Visit: Yes Status: Acute (4) Hypothyroidism (acquired) Current Visit: Yes Status: Acute Physician Review: Patient Assessed, Agree with Above Assessment and Plan Physician Review Additional Text: Fall ?Near syncope Plan: Check orthostatics vitals IV hydration PT evaluation Telemetry. <ana goncalves - Last Filed: 07/17/20 18:49>
[2020-07-16 23:38] LABS: Urine Blood NEGATIVE (NEG); Urine Glucose NEGATIVE (NEG); Urine Protein NEGATIVE (NEG); Urine pH 6.5 (5.0-7.0)
[2020-07-16] MEDS ORDERED: ONDANSETRON 4 MG/2 ML VIAL IV PRN (23:42)
[2020-07-16] MEDS: NA CHLORIDE 0.9% 1,000 ML IV SCH (23:42)
[2020-07-17] MEDS ORDERED: DIPHENHYDRAMINE 25 MG TAB/CAP ONE (00:12)
[2020-07-17] MEDS ORDERED: QUETIAPINE 100MG TAB ONE (00:20)
[2020-07-17 01:22] VITALS: BMI 32.5
[2020-07-17 05:20] LABS: Absolute Lymphocytes (CBC) 1.8 K/uL (0.7-4.9); Basophils % 0.8 % (0-1.3); Hematocrit 34.7 % (36.0-45.0); Lymphocytes % 22.7 % (15.3-44.8); MPV 8.7 fL (7.6-11.3)
[2020-07-17 05:46] LABS: Magnesium 2.2 mg/dL (1.8-2.4); Potassium 3.8 mmol/L (3.5-5.1); Thyroid Stimulating Hormone 2.11 uIU/mL (0.360-3.740)
[2020-07-17] MEDS ORDERED: POTASSIUM CL SA 10 MEQ TAB PO ONE ×2 (06:10→06:28)
[2020-07-17] MEDS ORDERED: PNEUMOCOCCAL VACCINE 0.5 ML IMVAC ONE (08:00)
--- NOTE | 2020-07-17 08:15 | RAD REPORT ---
EXAM DESCRIPTION: RAD - Chest Single View - 07/16/2020 8:42 pm CLINICAL HISTORY: COUGH, fall with chest trauma COMPARISON: Portable July 15 TECHNIQUE: AP portable chest image was obtained 07/16/2020 8:42 pm . FINDINGS: No peripheral mass or consolidation. Bilateral lung base patchy opacification favored to b e atelectasis. This can be monitored on subsequent imaging. Heart size is prominent. Pulmonary vascul ature within normal limits. Heart size is stable. Significant acute failure or volume overload are no t suspected. No measurable pleural effusion and no pneumothorax. No acute bony abnormality seen. No acute aortic findings suspected. IMPRESSION: Bibasilar atelectasis is suspected. No convincing evidence for pneumonia, failure or volume overload.
[2020-07-17] MEDS: ENOXAPARIN 40 MG/0.4 ML SQ SCH (08:40)
[2020-07-17] MEDS: NA CHLORIDE 0.9% 1,000 ML IV SCH ×3 (08:40→22:14)
--- NOTE | 2020-07-17 16:07 | EKG ---
Test Date: 2020-07-16 Test Time: 20:52:48 Bull Fiddle Player: SYLVIA MEASUREMENT RESULTS: Intervals: Rate: 60 [place]: 246 QRSD: 140 QT: 514 QTc: 514 [place]: P: 47 [place]: 246 QRS: 71 T: 9 INTERPRETIVE STATEMENTS: Sinus rhythm with 1st degree AV block Right bundle branch block Cannot rule out Inferior infarct, age undetermined Abnormal ECG Compared to ECG 07/15/2020 14:39:00 Myocardial infarct finding now present Sinus bradycardia no longer present Electronically Signed On 07-17-20 16:05:30 EVENT SECURITY OFFICER by Jose Crooks
--- NOTE | 2020-07-17 18:23 | P.DS ---
Admission Date: 07/16/20 Discharge Date: 07/18/20 Primary Care Provider: Dr. Matute Disposition: DC HOME/HOME HEALTH CARE Discharge Condition: FAIR Reason for Admission: Near syncope, fall - Problems (1) Near syncope Current Visit: Yes Status: Acute (2) Fall Current Visit: Yes Status: Acute (3) Hypertension Current Visit: Yes Status: Acute (4) Hypothyroidism (acquired) Current Visit: Yes Status: Acute Brief History of Present Illness: 79-year-old woman with a history of hypertension presented to the emergency department after a fall at home. Patient stated she fell after she got up from sitting position. She also reports another fall episode last week which occurred when she stooped to pick an item from the ground. Workup in the emergency department was unremarkable. EKG demonstrated sinus rhythm with first-degree AV block and right bundle branch block. Chest x-ray unremarkable. Initial troponin negative. Patient was placed under observation for further workup for syncope. Hospital Course: Orthostatic vitals checked were negative. Patient was rehydrated with IV fluid. Patient reported that her legs gave way each time she fell. She needed assistance to use the bathroom. Her multiple falls likely related to debility. Patient assessed by PT and noted to have unsteady gait. Patient also complaining of hand tremors. Patient noted to be taking multiple psychotropic medications upon review of his home medications. Polypharmacy could have contributed to her multiple falls. She takes Benadryl, hydroxyzine, Seroquel, Xanax all at bedtime. Benadryl and hydroxyzine has been discontinued and replaced with trazodone. Patient states she has trouble sleeping at night without these medication. Echocardiogram was performed and the result is pending to be followed. No evidence of UTI by UA. PT recommend ambulation with a walker and home health for PT. Patient states she has a walker at home. She is discharged with home health. Plan of care discussed with the patient and her daughter and all questions answered. Vital Signs/Physical Exam: Temp Pulse Resp BP Pulse Ox 98.9 F 71 19 150/70 H 93 07/17/20 16:00 07/17/20 16:00 07/17/20 16:00 07/17/20 16:00 07/17/20 16:00 General: Alert, In no apparent distress HEENT: Mucous membr. moist/pink Neck: Supple, JVD not distended Respiratory: Clear to auscultation bilaterally, Normal air movement Cardiovascular: No edema, Regular rate/rhythm, Normal S1 S2 Capillary refill: <2 Seconds Gastrointestinal: Normal bowel sounds, Soft and benign, Non-distended, No tenderness Musculoskeletal: No swelling, No tenderness Integumentary: No rashes, No erythema Neurological: Normal speech, Normal strength at 5/5 x4 extr Laboratory Data at Discharge: WBC 7.8 K/uL (4.3-10.9) D 07/17/20 05:05 Hgb 11.4 g/dL (12.0-15.0) L 07/17/20 05:05 Hct 34.7 % (36.0-45.0) L 07/17/20 05:05 Plt Count 308 K/uL (152-406) 07/17/20 05:05 PT 11.3 SECONDS (9.5-12.5) 07/16/20 20:29 INR 0.96 07/16/20 20: Sodium 142 mmol/L (136-145) 07/17/20 05:05 Potassium 3.8 mmol/L (3.5-5.1) 07/17/20 05:05 BUN 8 mg/dL (7-18) 07/17/20 05:05 Creatinine 0.79 mg/dL (0.55-1.3) 07/17/20 05:05 Glucose 109 mg/dL (74-106) H 07/17/20 05:05 Magnesium 2.2 mg/dL (1.8-2.4) 07/17/20 05:05 Total Bilirubin 0.4 mg/dL (0.2-1.0) 07/16/20 20:29 AST 22 U/L (15-37) 07/16/20 20:29 ALT 25 U/L (12-78) 07/16/20 20:29 Alkaline Phosphatase 85 U/L (45-117) 07/16/20 20:29 Home Medications: Alprazolam [Xanax] 2 mg PO BEDTIME 07/17/20 Amlodipine Besylate/Benazepril [Amlodipine-Benazepril 10-40 mg] 1 cap PO BEDTIME 07/17/20 Aspirin Chewable [Aspirin Chewable*] 81 mg PO BEDTIME 07/17/20 Donepezil HCl [Aricept] 10 mg PO BEDTIME 07/17/20 Fluoxetine HCl [Prozac] 2 cap PO BEDTIME 07/17/20 Levothyroxine [Synthroid*] 1 tab PO 0630 07/17/20 Multivitamin 1 tab PO BEDTIME 07/17/20 Oxybutynin Chloride [Ditropan*] 5 mg PO BID 07/17/20 Quetiapine Fumarate [Seroquel Xr] 30 mg PO BEDTIME 07/17/20 estradioL [Estradiol] 0.5 mg PO BEDTIME 07/17/20 Diet: AHA Activity: Fall precautions Followup: Giovani THOMPSON,Cleveland Boudreaux DO [Primary Care Provider] - 1 Week
[2020-07-17] MEDS ORDERED: QUETIAPINE 25 MG TAB PO SCH (22:00)
[2020-07-18] MEDS: NA CHLORIDE 0.9% 1,000 ML IV SCH (01:44)
[2020-07-18] MEDS ORDERED: ACETAMINOPHEN 500 MG TAB PO PRN (03:05)
[2020-07-18 06:14] LABS: Magnesium 2.2 mg/dL (1.8-2.4); Potassium 3.9 mmol/L (3.5-5.1)
[2020-07-18] MEDS ORDERED: POTASSIUM CL SA 10 MEQ TAB PO ONE (09:00)
[2020-07-18 09:28] VITALS: BP 146/66; TEMP 98.8
[2020-07-18] MEDS: ENOXAPARIN 40 MG/0.4 ML SQ SCH (09:28)
[2020-07-18 12:16] VITALS: O2SAT 3
--- NOTE | 2020-07-18 13:53 | P.PN ---
Subjective Date of Service: 07/17/20 Primary Care Provider: Dr. Matute Chief Complaint: Near syncope, fall Patient is not orthostatic. Nurse reports she has unsteady gait and has to hold on to things in order to make it to the bathroom. She denies any chest pain. She denies any dizziness. Physical Examination - Vital Signs Temperature: 98.8 F Blood Pressure: 146/66 Pulse: 74 Respirations: 18 Pulse Ox (%): 90 - Physical Exam General: Alert, In no apparent distress Neck: Supple, JVD not distended Respiratory: Clear to auscultation bilaterally, Normal air movement Cardiovascular: No edema, Regular rate/rhythm, Normal S1 S2 Gastrointestinal: Soft and benign, Non-distended, No tenderness Musculoskeletal: No swelling, No tenderness Integumentary: No rashes Neurological: Normal speech, Normal strength at 5/5 x4 extr Assessment And Plan - Current Problems (Diagnosis) (1) Near syncope Current Visit: Yes Status: Acute (2) Fall Current Visit: Yes Status: Acute (3) Hypertension Current Visit: Yes Status: Acute (4) Hypothyroidism (acquired) Current Visit: Yes Status: Acute (5) Polypharmacy Current Visit: Yes Status: Acute - Plan Continue IV hydration. Physical therapy to evaluate functional status. Continue home medication. Scale down psychotropics. Physician Review: Patient Assessed, Agree with Above Assessment and Plan
--- NOTE | 2020-07-19 11:30 | ECHO ---
HEIGHT: 5 ft 4 in WEIGHT: 190 lb 0 oz DATE OF STUDY: 07/18/[address]: ana goncalves 2-DIMENSIONAL: YES M.MODE: YES DOPPLER: YES COLOR FLOW: YES TDS: YES PORTABLE: NO DEFINITY: NO BUBBLE STUDY: NO DIAGNOSIS: SYNCOPE CARDIAC HISTORY: CATHERIZATION: NO SURGERY: NO PROSTHETIC VALVE: NO PACEMAKER: NO MEASUREMENTS (cm) DIASTOLIC (NORMALS) SYSTOLIC (NORMALS) IVSd 1.3 (0.6-1.2) LA Diam 3.3 (1.9-4.0) LVEF 68% LVIDd 4.1 (3.5-5.7) LVIDs 2.6 (2.0-3.5) %FS 37% LVPWd 1.3 (0.6-1.2) Ao Diam 2.5 (2.0-3.7) 2 DIMENSIONAL ASSESSMENT: RIGHT ATRIUM: NORAML LEFT ATRIUM: NORMAL RIGHT VENTRICLE: NORMAL LEFT VENTRICLE: NORMAL TRICUSPID VALVE: NORFMLA MITRAL VALVE: NORMAL PULMONIC VALVE: NORMAL AORTIC VALVE: NORMAL PERICARDIAL EFFUSION: NONE AORTIC ROOT: NORMAL LEFT VENTRICULAR WALL MOTION: NORMAL DOPPLER/COLOR FLOW: NORMAL COMMENTS: NORMAL 2D ECHOCARDIOGRAM WITH DOPPLER. NO WALL MOTION ABNORMALITY. NO EFFUSION. TECHNOLOGIST: Irina JONES
== END 2020-07-18 16:07 | disposition home health service (06) ==
LOC: ER 16:44 → ERHOLD 22:04 → 2ND 07-17 07:32
PROVIDERS: ADMIT Internal Medicine; ATTEND Internal Medicine
DX: R55 Syncope and collapse (principal); I10 Essential (primary) hypertension; E03.9 Hypothyroidism, unspecified; Z20.828 Contact with and (suspected) exposure to other viral communicable diseases; R94.31 Abnormal electrocardiogram [ECG] [EKG]; Z79.899 Other long term (current) drug therapy; Z86.718 Personal history of other venous thrombosis and embolism; R29.6 Repeated falls
CPT/HCPCS: 96361; 93005; 93306; 85025 ×2; 80048 ×3; 36415 ×2; 83735 ×3; 85610; 80076; 84443; 81003; 84484; 84439; 83880; 70450; 72125; 71045; 97162; 96360; 99285; U0003; J1650 ×2; J7030 ×3; G0378

== ENCOUNTER 2020-08-12 20:24 | Emergency (ER) | payer OTHER ==
--- OUTSIDE RECORDS SUMMARY | 2020-08-12 20:27 | XMS REPORT | Continuity of Care Document ---
:1940 Author Organization [facility] t Address [address] [place] [address] Care Team Providers Name Role Phone Georges [...] Type Clinicians Facility Department ID 2019-11-15 2019-11-15 DAVID Mccullough [phone] [id number] 00:00:00 00:00:00 [facility] [id number] [place] [id number] Erik [phone] [address] One Results This patient has no known results.
[2020-08-12] MEDS ORDERED: NA CHLORIDE 0.9% 500 ML ONE (22:34)
[2020-08-12 22:58] LABS: Absolute Lymphocytes (CBC) 1.6 K/uL (0.7-4.9); Hematocrit 37.9 % (36.0-45.0); Lymphocytes % 16.8 % (15.3-44.8); MPV 8.6 fL (7.6-11.3); RBC Red Blood Cell Count 4.19 M/uL (3.86-4.86)
[2020-08-12 23:10] LABS: ALT/SGPT 19 U/L (12-78); AST/SGOT 15 U/L (15-37); Albumin 3.3 g/dL (3.4-5.0); Alkaline Phosphatase 79 U/L (45-117); BUN Blood Urea Nitrogen 15 mg/dL (7-18); Bicarbonate 33 mmol/L (21-32); Bilirubin Direct < 0.1 mg/dL (0-0.2); Bilirubin Total 0.4 mg/dL (0.2-1.0); Glucose Level 129 mg/dL (74-106); Lipase 102 U/L (73-393); Potassium 3.7 mmol/L (3.5-5.1); Protein, Total 6.8 g/dL (6.4-8.2); Sodium Level 141 mmol/L (136-145)
--- NOTE | 2020-08-13 02:17 | ER ---
Nurse's Notes [facility] Name: July Godinez Age: 80 yrs Sex: Female : 1940 Arrival Date: 08/12/2020 Time: 20:27 Bed 14 Private MD: Cleveland Matute H Diagnosis: Vomiting, unspecified Presentation: 08/12 20:40 Chief complaint: Friend and/or Co-Worker states: daughter: Vomiting off and on x 4 ca1 days. Vomiting every time she drinks and eat something. It's like, it gets stuck and it will come back up and out. Denies abdominal pain. Denies diarrhea. Reports nausea in the morning when she wakes up. Coronavirus screen: Client denies travel out of the [place] in the last 14 days. nausea, vomiting. Client presents with at least one sign or symptom that may indicate coronavirus-19. Standard/surgical mask placed on the client. Provider contacted for isolation considerations. Ebola Screen: Patient negative for fever greater than or equal to 101.5 degrees Fahrenheit, and additional compatible Ebola Virus Disease symptoms Patient denies exposure to infectious person. Patient denies travel to an Ebola-affected area in the 21 days before illness onset. No symptoms or risks identified at this time. Initial Sepsis Screen: Does the patient meet any 2 criteria? No. Patient's initial sepsis screen is negative. Does the patient have a suspected source of infection? No. Patient's initial sepsis screen is negative. Risk Assessment: Do you want to hurt yourself or someone else? Patient reports no desire to harm self or others. Onset of symptoms was August 12, 2020. 20:40 Method Of Arrival: Wheelchair ca1 20:40 Acuity: ALDO 3 ca1 Historical: - Allergies: 20:44 Demerol; ca1 - PMHx: 20:44 DVT; Hypertension; Thyroid problem; ca1 - PSHx: 20:44 shoulder surgery; Hysterectomy; ca1 - Immunization history:: Pneumococcal vaccine is up to date, Flu vaccine is up to date. - Social history:: Smoking status: Patient denies any tobacco usage or history of. Screenin:27 Abuse screen: Denies threats or abuse. Denies injuries from another. Nutritional zb screening: No deficits noted. Tuberculosis screening: No symptoms or risk factors identified. Fall Risk Fall in past 12 months (25 points). Secondary diagnosis (15 points) dementia, No IV (0 pts). Ambulatory Aid- Crutches/Cane/Walker (15 pts). Gait- Normal/Bed Rest/Wheelchair (0 pts) Mental Status- Oriented to own ability (0 pts). Total Bolanos Fall Scale indicates High Risk Score (45 or more points). Fall prevention measures have been instituted. Side Rails Up X 2 Placed Close to Nursing Station Frequent Obs/Assessments Occuring As available patient and family educated on Fall Prevention Program and Strategies. Assessment: 22:00 General: Appears in no apparent distress. uncomfortable, Behavior is calm, cooperative, zb appropriate for age. Pain: Denies pain. Neuro: Level of Consciousness is awake, alert, obeys commands, Oriented to person, place, time, situation. Cardiovascular: Capillary refill < 3 seconds in bilateral fingers Patient's skin is warm and dry. Respiratory: Airway is patent Respiratory effort is even, unlabored, Respiratory pattern is regular, symmetrical. GI: Abdomen is round non-distended, Bowel sounds present X 4 quads. Abd is soft and non tender X 4 quads. Reports intolerance of fluids, intolerance of food, vomiting, trouble swallowing food. : No signs and/or symptoms were reported regarding the genitourinary system. EENT: Oral mucosa is moist. Throat is clear. Derm: Skin is intact, is healthy with good turgor, Skin is dry, Skin is normal, Skin temperature is warm. Musculoskeletal: Circulation, motion, and sensation intact. Capillary refill < 3 seconds, in bilateral fingers. 23:00 Reassessment: Patient appears in no apparent distress at this time. Patient and/or zb family updated on plan of care and expected duration. Pain level reassessed. Patient is alert, oriented x 3, equal unlabored respirations, skin warm/dry/pink. no pain at this time. 08/13 02:45 Reassessment: Patient and/or family updated on plan of care and expected duration. Pain ea level reassessed. Patient is alert, oriented x 3, equal unlabored respirations, skin warm/dry/pink. Discharge instruction given to patient and daughter, verbalized the understanding of instruction. Pt left ED via wheelchair accompanied by family. Pt tolerating well. Vital Signs: 08/12 20:40 BP 107 / 46; Pulse 58; Resp 18 S; Temp 98(TE); Pulse Ox 95% on R/A; Weight 86.18 kg ca1 (R); Height 5 ft. 4 in. (162.56 cm) (R); Pain 0/10; 22:15 BP 115 / 61; Pulse 53; Resp 18; Pulse Ox 93% on R/A; zb 23:15 BP 119 / 65; Pulse 53; Resp 18; Pulse Ox 99% on R/A; zb 08/13 02:30 BP 120 / 60; Pulse 53; Resp 18; Temp 98.0; Pulse Ox 100% on R/A; ea 08/12 20:40 Body Mass Index 32.61 (86.18 kg, 162.56 cm) ca1 ED Course: 08/12 20:27 Patient arrived in ED. am2 20:27 Cleveland Matute DO is Private Physician. am2 20:43 Triage completed. ca1 20:44 Arm band placed on right wrist. ca1 21:51 Steve Bar MD is Attending Physician. 7 22:18 Sierra Garner RN is Primary Nurse. zb 22:30 Inserted saline lock: 20 gauge in right antecubital area, using aseptic technique. ea Blood collected. 22:52 Chest Single View XRAY In Process Unspecified. EDMS 22:52 Neck Soft Tissue XRAY In Process Unspecified. EDMS 23:28 Patient has correct armband on for positive identification. nuclear monitoring technician on. Pulse zb ox on. NIBP on. Door closed. Noise minimized. Warm blanket given. 08/13 02:16 Jasper Gonzales MD is Referral Physician. 7 02:40 No provider procedures requiring assistance completed. ea 02:40 IV discontinued, intact, bleeding controlled, No redness/swelling at site. Pressure ea dressing applied. Administered Medications: 08/12 22:38 Drug: NS 0.9% 500 ml Route: IV; Rate: bolus; Site: right antecubital; ea 08/13 00:30 Follow up: Response: No adverse reaction; IV Status: Completed infusion; IV Intake: ea 500ml Intake: 00:30 IV: 500ml; Total: 500ml. ea Outcome: 02:17 Discharge ordered by . 7 02:47 Discharged to home ambulatory, with family. ea 02:47 Condition: stable 02:47 Discharge instructions given to patient, Instructed on discharge instructions, follow up and referral plans. Demonstrated understanding of instructions, follow-up care. 02:48 Patient left the ED. ea Signatures: Dispatcher [employer] Monserrat Alvarez Elena RN Carol Merritt ea, RN RN ca1 Steve Bar MD MD 7 Sierra Garner RN RN zb
--- NOTE | 2020-08-13 02:18 | EDPHYS ---
Physician Documentation [facility] Name: July Godinez Age: 80 yrs Sex: Female : 1940 Arrival Date: 08/12/2020 Time: 20:27 Bed 14 Private MD: [place] Matute H ED Physician Steve Bar HPI: 08/12 22:44 This 80 yrs old Female presents to ER via Wheelchair with complaints of mh7 Nausea/Vomiting. 22:44 The patient presents to the emergency department with nausea, that is mild, vomiting, mh7 that is intermittent, described as undigested food. Onset: The symptoms/episode began/occurred 4 day(s) ago. Possible causes: unknown. The symptoms are aggravated by food , The symptoms are alleviated by Not Eating. Associated signs and symptoms: Pertinent negatives: abdominal pain, anorexia, belching, constipation, diarrhea, dysuria, fever, flatulence, GI bleeding, hematuria, vaginal discharge. Severity of symptoms: At their worst the symptoms were moderate 4 day(s) ago, in the emergency department the symptoms are unchanged. Historical: - Allergies: 20:44 Demerol; ca1 - PMHx: 20:44 DVT; Hypertension; Thyroid problem; ca1 - PSHx: 20:44 shoulder surgery; Hysterectomy; ca1 - Immunization history:: Pneumococcal vaccine is up to date, Flu vaccine is up to date. - Social history:: Smoking status: Patient denies any tobacco usage or history of. ROS: 22:44 Constitutional: Negative for fever, chills, and weight loss, Eyes: Negative for injury, mh7 pain, redness, and discharge, Neck: Negative for injury, pain, and swelling, Cardiovascular: Negative for chest pain, palpitations, and edema, Respiratory: Negative for shortness of breath, cough, wheezing, and pleuritic chest pain, Back: Negative for injury and pain, : Negative for injury, bleeding, discharge, and swelling, MS/Extremity: Negative for injury and deformity, Skin: Negative for injury, rash, and discoloration, Neuro: Negative for headache, weakness, numbness, tingling, and seizure, Psych: Negative for depression, anxiety, suicide ideation, homicidal ideation, and hallucinations, Allergy/Immunology: Negative for hives, rash, and allergies, Endocrine: Negative for neck swelling, polydipsia, polyuria, polyphagia, and marked weight changes, Hematologic/Lymphatic: Negative for swollen nodes, abnormal bleeding, and unusual bruising. Exam: 22:44 Constitutional: This is a well developed, well nourished patient who is awake, alert, mh7 and in no acute distress. Head/Face: Normocephalic, atraumatic. Eyes: Pupils equal round and reactive to light, extra-ocular motions intact. Lids and lashes normal. Conjunctiva and sclera are non-icteric and not injected. Cornea within normal limits. Periorbital areas with no swelling, redness, or edema. ENT: Nares patent. No nasal discharge, no septal abnormalities noted. Tympanic membranes are normal and external auditory canals are clear. Oropharynx with no redness, swelling, or masses, exudates, or evidence of obstruction, uvula midline. Mucous membranes moist. Neck: Trachea midline, no thyromegaly or masses palpated, and no cervical lymphadenopathy. Supple, full range of motion without nuchal rigidity, or vertebral point tenderness. No Meningismus. Chest/axilla: Normal chest wall appearance and motion. Nontender with no deformity. No lesions are appreciated. Cardiovascular: Regular rate and rhythm with a normal S1 and S2. No gallops, murmurs, or rubs. Normal PMI, no JVD. No pulse deficits. Respiratory: Lungs have equal breath sounds bilaterally, clear to auscultation and percussion. No rales, rhonchi or wheezes noted. No increased work of breathing, no retractions or nasal flaring. Abdomen/GI: Soft, non-tender, with normal bowel sounds. No distension or tympany. No guarding or rebound. No evidence of tenderness throughout. Back: No spinal tenderness. No costovertebral tenderness. Full range of motion. Skin: Warm, dry with normal turgor. Normal color with no rashes, no lesions, and no evidence of cellulitis. MS/ Extremity: Pulses equal, no cyanosis. Neurovascular intact. Full, normal range of motion. Neuro: Awake and alert, GCS 15, oriented to person, place, time, and situation. Cranial nerves II-XII grossly intact. Motor strength 5/5 in all extremities. Sensory grossly intact. Cerebellar exam normal. Normal gait. Psych: Awake, alert, with orientation to person, place and time. Behavior, mood, and affect are within normal limits. Vital Signs: 20:40 BP 107 / 46; Pulse 58; Resp 18 S; Temp 98(TE); Pulse Ox 95% on R/A; Weight 86.18 kg ca1 (R); Height 5 ft. 4 in. (162.56 cm) (R); Pain 0/10; 22:15 BP 115 / 61; Pulse 53; Resp 18; Pulse Ox 93% on R/A; zb 23:15 BP 119 / 65; Pulse 53; Resp 18; Pulse Ox 99% on R/A; zb 08/13 02:30 BP 120 / 60; Pulse 53; Resp 18; Temp 98.0; Pulse Ox 100% on R/A; ea 08/12 20:40 Body Mass Index 32.61 (86.18 kg, 162.56 cm) ca1 MDM: 02:13 Differential diagnosis: gastritis, Esophageal Impaction, Esophageal Foreign Body, mh7 Regurgitation. Data reviewed: vital signs, nurses notes, lab test result(s), CBC, electrolytes, radiologic studies, plain films. Data interpreted: Pulse oximetry: on room air is 99 %. Interpretation: normal. Counseling: I had a detailed discussion with the patient and/or guardian regarding: the historical points, exam findings, and any diagnostic results supporting the discharge/admit diagnosis, lab results, radiology results, the need for outpatient follow up, a billing services manager, to return to the emergency department if symptoms worsen or persist or if there are any questions or concerns that arise at home. Response to treatment: the patient's symptoms have resolved after treatment, the patient's blood pressure is in an acceptable range, mental status has returned to baseline, the patient no longer shows bradycardia, the patient is not short of breath, the patient is not tachycardic, the patient's pain is gone, patient is well hydrated. Tolerating PO intake without difficulty. 02:17 Patient medically screened. [facility] 08/12 22:09 Order name: Basic Metabolic Panel; Complete Time: 23:[address] [facility] 08/12 22:09 Order name: CBC with Diff; Complete Time: 23:[address] [facility] 08/12 22:09 Order name: Hepatic Function; Complete Time: 23:[address] [facility] 08/12 22:09 Order name: Lipase; Complete Time: 23:[address] [facility] 08/12 22:09 Order name: Chest Single View XRAY [facility] 08/12 22:09 Order name: Neck Soft Tissue XRAY [facility] 08/12 22:09 Order name: IV Saline Lock; Complete Time: 22:[address] [facility] 08/12 22:09 Order name: Labs collected and sent; Complete Time: 22:[address] [facility] 08/12 22:09 Order name: EKG - Nurse/Tech; Complete Time: 23:23 Administered Medications: 08/12 22:38 Drug: NS 0.9% 500 ml Route: IV; Rate: bolus; Site: right antecubital; ea 08/13 00:30 Follow up: Response: No adverse reaction; IV Status: Completed infusion; IV Intake: ea 500ml Disposition: 08/13/20 02:17 Discharged to Home. Impression: Vomiting, unspecified. - Condition is Stable. - Discharge Instructions: Nausea and Vomiting, Adult, [id number]. - Prescriptions for Zofran ODT 4 mg Oral tablet,disintegrating - place 1 tablet by TRANSLINGUAL route every 8 hours As needed; 6 tablet. - Medication Reconciliation Form, Thank You Letter, Antibiotic Education, Prescription Opioid Use form. - Follow up: Private Physician; When: 1 - 2 days; Reason: Worsening of condition, Recheck today's complaints, Continuance of care, Re-evaluation by your physician. Follow up: Jasper Gonzales MD; When: 1 - 2 days; Reason: Worsening of condition, Recheck today's complaints. - Problem is an ongoing problem. - Symptoms have improved. Signatures: Dispatcher [employer] EDGabby Olvera RN RN ea Acob, Cheryl, RN RN ca1 Holmes, Maurice, MD MD [facility] Corrections: (The following items were deleted from the chart) 02:48 02:17 08/13/2020 02:17 Discharged to Home. Impression: Vomiting, unspecified. Condition ea is Stable. Forms are Medication Reconciliation Form, Thank You Letter, Antibiotic Education, Prescription Opioid Use. Follow up: Private Physician; When: 1 - 2 days; Reason: Worsening of condition, Recheck today's complaints, Continuance of care, Re-evaluation by your physician. Follow up: Jasper Gonzales; When: 1 - 2 days; Reason: Worsening of condition, Recheck today's complaints. Problem is an ongoing problem. Symptoms have improved. mh7
[2020-08-13 02:58] VITALS: BP 120/60; TEMP 98; O2SAT 100
--- NOTE | 2020-08-13 15:42 | RAD REPORT ---
EXAM DESCRIPTION: Neck Soft Tissue CLINICAL HISTORY: FORIEGN BODY COMPARISON: None. FINDINGS: Single view of the neck soft tissues. Normal epiglottis. No radiopaque foreign body identi fied. Degenerative change of the spine. No frontal view provided. IMPRESSION: 1. No definite radiopaque foreign body identified. Electronically signed by: Rc Owen 08/13/2020 12:26 AM HEALTH INFORMATION ASSISTANT Due to temporary technical issues with the PACS/Fluency reporting system, reports are being signed by the in house radiologists without review as a courtesy to insure prompt reporting. The interpreting radiologist is fully responsible for the content of the report.
--- NOTE | 2020-08-13 15:44 | RAD REPORT ---
EXAM DESCRIPTION: Chest Single View CLINICAL HISTORY: Possible esophageal foreign body COMPARISON: None. FINDINGS: Single frontal radiograph view of the chest. Cardiomediastinal silhouette: Tortuosity of the thoracic aorta. Heart is not enlarged. Lungs: No consolidation, pneumothorax, or pleural effusion. Bones: Degenerative endplate spondylosis of the spine. Upper abdomen: No abnormality identified. Rounded radiopaque structures overlying the body are likely external. No definite intraluminal foreign body. IMPRESSION: 1. No acute pulmonary process identified. Electronically signed by: Rc Owen 08/13/2020 12:25 AM FEED CRUSHER OPERATOR Due to temporary technical issues with the PACS/Fluency reporting system, reports are being signed by the in house radiologists without review as a courtesy to insure prompt reporting. The interpreting radiologist is fully responsible for the content of the report.
== END 2020-08-13 02:48 | disposition home or self-care (01) ==
LOC: ER 20:24
DX: R11.2 Nausea with vomiting, unspecified (principal); I10 Essential (primary) hypertension; Z86.718 Personal history of other venous thrombosis and embolism; E07.9 Disorder of thyroid, unspecified
CPT/HCPCS: 93005; 85025; 80048; 36415; 80076; 83690; 71045; 70360; J7040; 96360; 96361; 99284